=== PATIENT | male | born 1975 | race African-American/Black ===

== ENCOUNTER 2018-11-01 13:19 | Inpatient (IN) | END 2018-11-10 14:30 | disposition home or self-care (01) | DRG 974 | DX: A41.9 Sepsis, unspecified organism (principal); N17.0 Acute kidney failure with tubular necrosis; B20 Human immunodeficiency virus [HIV] disease; E44.0 Moderate protein-calorie malnutrition; N41.0 Acute prostatitis; E87.1 Hypo-osmolality and hyponatremia; K62.5 Hemorrhage of anus and rectum; R65.20 Severe sepsis without septic shock; D64.9 Anemia, unspecified; D72.819 Decreased white blood cell count, unspecified; M48.02 Spinal stenosis, cervical region; E86.1 Hypovolemia; F12.90 Cannabis use, unspecified, uncomplicated; H91.3 Deaf nonspeaking, not elsewhere classified; K60.2 Anal fissure, unspecified; Z91.19 Patient's noncompliance with other medical treatment and regimen; M79.602 Pain in left arm; M79.601 Pain in right arm ==

== ENCOUNTER 2018-12-08 23:11 | Inpatient (IN) | payer OTHER ==
[~2018-12-08] VITALS: Ht 170.2 cm; Wt 63.5 kg
[~2018-12-08 23:11] MED LIST: ABAC1TAB15 PO; ACYC800T PO; ASCO500T9 PO; AZIT600T5 PO; CHOL100044 PO; FERR325T23 PO; FLUC100T8 PO; MULT-447 PO; OMEG-167 PO; OMEP20CA10 PO; SELE200T PO; SULF1TAB3 PO; TENO300T5 PO; ZINC50TA4 PO
--- NOTE | 2018-12-08 23:25 | NUR ---
PT JEANA FROM STREET C/O "FLU LIKE" SYMPTOMS X 3 DAYS. PT AOX4. PT COUGHING WITH NAD NOTED. RESP EVEN AND UNLABORED. PT IS DEAF. PT ON MONITOR IN BED 12. WILL CONTINUE TO MONITOR.
--- NOTE | 2018-12-08 23:28 | NUR ---
RT AT BEDSIDE
[2018-12-08] MEDS ORDERED: IV NS 0.9% 1,000 ML BAG IV ONE (23:30)
[2018-12-08] MEDS ORDERED: ALBUTEROL FS 2.5 MG/3 ML VIAL.NEB CONTNEB ONE (23:30)
[2018-12-08] MEDS ORDERED: methylPREDNISolone SOD SUCC 125 MG/2ML VIAL IV ONE (23:30)
[2018-12-08] MEDS ORDERED: IPRATROPIUM NEB FS 0.5 MG/2.5 ML AMPUL.NEB NEB ONE (23:30)
[2018-12-08] MEDS ORDERED: KETOROLAC TROMETHAMINE INJ 30 MG/ML VIAL IV ONE (23:30)
[2018-12-08] MEDS ORDERED: IPRATROPIUM NEB FS 0.5 MG/2.5 ML AMPUL.NEB ONE (23:32)
[2018-12-08] MEDS ORDERED: ALBUTEROL FS 2.5 MG/3 ML VIAL.NEB ONE (23:32)
[2018-12-08 23:45] LABS: BASOPHILS % (AUTO) 0.8 % (0.0-2.0); EOSINOPHILS % (AUTO) 8.2 % (0.0-6.0); HEMATOCRIT 40 % (39-51); HEMOGLOBIN 13.1 g/dL (13.5-17.5); LYMPHOCYTES # (AUTO) 0.8 /CMM (0.8-4.8); LYMPHOCYTES % (AUTO) 23.9 % (20.0-44.0); MEAN CORPUSCULAR HGB CONC 33 g/dl (31.0-36.0); MEAN CORPUSCULAR VOLUME 87 fL (80-96); MONOCYTES # (AUTO) 0.2 /CMM (0.1-1.30); MONOCYTES % (AUTO) 6.6 % (2.0-12.0); NEUTROPHILS % (AUTO) 60.5 % (43.0-81.0); PLATELET COUNT (AUTO) 229 /CMM (150-450); RED BLOOD CELL COUNT(AUTO) 4.54 MIL/uL (4.5-6.0); WHITE BLOOD COUNT (AUTO) 3.3 K/uL (4.3-11.0)
[2018-12-08 23:59] LABS: CALCIUM, SERUM 8.3 mg/dL (8.5-10.1); CREATININE 1.2 mg/dL (0.6-1.3); POTASSIUM 4.1 mmol/L (3.5-5.1)
[2018-12-09 00:11] LABS: ALBUMIN 2.9 g/dL (3.4-5.0); BILIRUBIN,DIRECT 0.1 mg/dL (0.0-0.2); BILIRUBIN,TOTAL 0.5 mg/dL (0.2-1.0); TOTAL PROTEIN, SERUM 7.3 g/dL (6.4-8.2)
--- NOTE | 2018-12-09 00:20 | NUR ---
SWAB DONE AND SENT TO LAB
[2018-12-09] MEDS ORDERED: methylPREDNISolone SOD SUCC 125 MG/2ML VIAL ONE (00:22)
[2018-12-09] MEDS ORDERED: KETOROLAC TROMETHAMINE 15 MG/ML VIAL ONE (00:22)
[2018-12-09] MEDS ORDERED: LEVOFLOXACIN 750 MG /D5W 150ML PIGGYBACK IV ONE (00:30)
[2018-12-09] MEDS ORDERED: FUROSEMIDE 40 MG/4 ML VIAL IV ONE (00:30)
--- NOTE | 2018-12-09 01:48 | NUR ---
Patient is resting comfortably in bed with eyes closed. Easily aroused. VSS.
--- NOTE | 2018-12-09 01:57 | NUR ---
REPORT GIVEN TO MYA GONZALES FOR GERSON
[2018-12-09] MEDS ORDERED: ACETAMINOPHEN 325 MG TABLET PO PRN (02:00)
[2018-12-09] MEDS ORDERED: ZOLPIDEM TARTRATE 5 MG TABLET PO PRN (02:00)
[2018-12-09] MEDS ORDERED: IPRATROPIUM NEB FS 0.5 MG/2.5 ML AMPUL.NEB NEB PRN (02:00)
[2018-12-09] MEDS ORDERED: MAGNESIUM HYDROXIDE 30 ML UDC PO PRN (02:00)
[2018-12-09] MEDS ORDERED: ONDANSETRON HCL/PF 4 MG/2 ML VIAL IVP PRN (02:00)
[2018-12-09] MEDS ORDERED: ALBUTEROL FS 2.5 MG/0.5 ML VIAL.NEB NEB PRN (02:00)
[2018-12-09] MEDS ORDERED: Z GUARD REMEDY 2 OZ OINT TP PRN (02:00)
--- NOTE | 2018-12-09 02:05 | NUR ---
PONY RIDE OPERATOR NOTE PATIENT ARRIVED ON UNIT BY SANDRITA, PATIENT A/O X3, DEAF AND MUTE, BUT UNDERSTANDS MALTESE THROUGH WRITING. PATIENT IS SR ON THE MONITOR IN THE 90'S DENIE'S CHEST PAIN. PATIENT C/O SOB 2L O2 VIA NC GIVEN TO PATIENT, PATIENT STATES THAT HE FEELS BETTER. PATIENT HAS GENERALIZED RASHES ON THE SKIN. MD AWARE. WOUND CONSULT PENDING. PATIENT HAS A 20 G RIGHT HAND PATENT AND INTACT. NO S.S OF DISCOMFORT. PATIENT EDUCATED ON USE OF CALL LIGHT AND ORIENTED TO THE UNIT. RN WILL CONTINUE TO MONITOR PATIENT AND GIVEN CARE ORDERED.
[2018-12-09 02:10] VITALS: BP 130/88
[2018-12-09 04:00] VITALS: BP 120/85
--- NOTE | 2018-12-09 06:41 | NUR ---
HEAD CHARGER NOTE PATIENT SLEPT THROUGH THE NIGHT WELL. NO S/S OF DISTRESS. RN WILL ENDORSE TO AM FOR GERSON.
--- NOTE | 2018-12-09 07:49 | NUR ---
RN AM SHIFT NOTE RECEIVED PATIENT IN BED AWAKE AND ALERT X4, UNABLE TO VERBALIZE COMMANDS BUT CAN WRITE RESPONSE ON DRY ERASE BOARD, NO DISTRESS, IV INTACT, ABLE TO AMBULATE ON HIS OWN,
[2018-12-09 08:00] VITALS: BP 119/84
[2018-12-09] MEDS: ENOXAPARIN SODIUM 40 MG/0.4 ML DISP.SYRIN SQ SCH (08:45)
[2018-12-09 12:00] VITALS: BP 123/79
--- NOTE | 2018-12-09 12:01 | NUR ---
WOUND CARE CONSULT: PT PRESENTS WITH ITCHING SKIN ALL OVER AND PERIANAL IRRITATION/RASH, PRESENT ON ADMISSION. DEFER TO MD FOR ITCHING SKIN CONDITION. RECOMMENDATIONS MADE FOR PERIANAL SKIN PROTECTION AND TREATMENT. DISCUSSED WITH NURSING STAFF. PT IS ABLE TO MOVE INDEPENDENTLY IN BED AND IS CONTINENT AT THIS TIME. WILL SEE CECILIA. IN AGREEMENT WITH PLAN OF CARE. Addendum: 12/09/18 at 1203 by MISSY MCDANIEL WNDNU Amended: Links added.
--- NOTE | 2018-12-09 12:15 | NUR ---
CHARGE NOTES DC TELEMETRY PER DR. DE PAZ
[2018-12-09] MEDS: FUROSEMIDE 40 MG/4 ML VIAL IV SCH ×3 (13:08→20:04)
--- NOTE | 2018-12-09 15:13 | NUR ---
Social work consult: drop worker spoke with EVELIN charger tester, who states that patient is homeless and HIV+. drop worker arrived to patient bedside to speak with patient, however, patient was sound asleep and unable to be woken up. drop worker to follow-up at a later time.
[2018-12-09 16:00] VITALS: BP 127/73
[2018-12-09] MEDS ORDERED: ZINC GLUCONATE 50 MG PO SCH (16:30)
[2018-12-09] MEDS ORDERED: TRIUMEQ PO SCH (16:30)
[2018-12-09] MEDS ORDERED: SELENIUM 200 MCG PO SCH (16:30)
[2018-12-09] MEDS ORDERED: AZITHROMYCIN 600 MG TABLET PO SCH (17:00)
[2018-12-09] MEDS: FLUCONAZOLE (100 MG) 100 MG TABLET PO SCH (18:29)
[2018-12-09] MEDS: FERROUS SULFATE (325 MG) 325 MG/TAB TABLET PO SCH (18:29)
[2018-12-09] MEDS: CHOLECALCIFEROL 1,000 UNIT TABLET (VIT D3) PO SCH (18:29)
[2018-12-09] MEDS: ACYCLOVIR 800 MG TABLET PO SCH (18:29)
[2018-12-09] MEDS: SULFAMETH/TRIMETH 800/160 MG 1 UDTAB TABLET PO SCH (18:29)
[2018-12-09] MEDS: ASCORBIC ACID 500 MG TABLET PO SCH (18:30)
--- NOTE | 2018-12-09 18:30 | NUR ---
RN NOTE PT DOES NOT HAVE CURRENT MEDICATION LIST, PHARMACY IS AWARE AND GOING TO FOLLOW UP WITH [facility] TOMORROW. WILL ENDORSE TO LINE SERVICE ATTENDANT. PT REMAINED STABLE, SAFETY MEASURES IN PLACE, CALL LIGHT WITHIN REACH.
[2018-12-09] MEDS: CEFTRIAXONE 1 G in IV D5W 50 ML IV SCH (18:33)
[2018-12-09] MEDS: TENOFOVIR DISOPROXIL FUMARATE 300 MG TABLET PO SCH (18:38)
[2018-12-09 20:00] VITALS: BP 127/70
[2018-12-09] MEDS ORDERED: PERMETHRIN 5% CRM 60 GM TUBE TP ONE (20:30)
[2018-12-10 04:00] VITALS: BP 138/87
[2018-12-10 07:13] LABS: BASOPHILS % (AUTO) 0.2 % (0.0-2.0); EOSINOPHILS % (AUTO) 5.3 % (0.0-6.0); HEMATOCRIT 44 % (39-51); HEMOGLOBIN 14.7 g/dL (13.5-17.5); LYMPHOCYTES # (AUTO) 0.2 /CMM (0.8-4.8); LYMPHOCYTES % (AUTO) 5.4 % (20.0-44.0); MEAN CORPUSCULAR HGB CONC 34 g/dl (31.0-36.0); MEAN CORPUSCULAR VOLUME 86 fL (80-96); MONOCYTES # (AUTO) 0.2 /CMM (0.1-1.30); MONOCYTES % (AUTO) 5.4 % (2.0-12.0); NEUTROPHILS # (AUTO) 3.2 /CMM (1.8-8.9); NEUTROPHILS % (AUTO) 83.7 % (43.0-81.0); PLATELET COUNT (AUTO) 232 /CMM (150-450); RED BLOOD CELL COUNT(AUTO) 5.14 MIL/uL (4.5-6.0); WHITE BLOOD COUNT (AUTO) 3.9 K/uL (4.3-11.0)
[2018-12-10 07:39] LABS: ALBUMIN 3.2 g/dL (3.4-5.0); BILIRUBIN,TOTAL 0.6 mg/dL (0.2-1.0); CALCIUM, SERUM 8.6 mg/dL (8.5-10.1); CREATININE 1.4 mg/dL (0.6-1.3); MAGNESIUM 1.6 mg/dL (1.8-2.4); POTASSIUM 3.7 mmol/L (3.5-5.1); TOTAL PROTEIN, SERUM 8.1 g/dL (6.4-8.2)
[2018-12-10 08:00] VITALS: BP 115/79
[2018-12-10] MEDS: SULFAMETH/TRIMETH 800/160 MG 1 UDTAB TABLET PO SCH (08:43)
[2018-12-10] MEDS: MULTIVITAMINS,THERAGRAN 1 UDTAB TABLET PO SCH (08:43)
[2018-12-10] MEDS: FLUCONAZOLE (100 MG) 100 MG TABLET PO SCH (08:43)
[2018-12-10] MEDS: PANTOPRAZOLE 40 MG TABLET.DR PO SCH (08:43)
[2018-12-10] MEDS: ACYCLOVIR 800 MG TABLET PO SCH (08:43)
[2018-12-10] MEDS: CHOLECALCIFEROL 1,000 UNIT TABLET (VIT D3) PO SCH (08:43)
[2018-12-10] MEDS: ASCORBIC ACID 500 MG TABLET PO SCH (08:44)
[2018-12-10] MEDS: FERROUS SULFATE (325 MG) 325 MG/TAB TABLET PO SCH (08:44)
[2018-12-10] MEDS: ENOXAPARIN SODIUM 40 MG/0.4 ML DISP.SYRIN SQ SCH (08:45)
[2018-12-10] MEDS: TENOFOVIR DISOPROXIL FUMARATE 300 MG TABLET PO SCH (09:07)
[2018-12-10] MEDS: Magnesium 1GM/D5W 100ML PREMIX 100 ML IV SCH ×2 (11:15→12:26)
[2018-12-10] MEDS: FUROSEMIDE 40 MG/4 ML VIAL IV SCH ×2 (11:16→15:03)
[2018-12-10] MEDS: POTASSIUM CHLORIDE 20 MEQ TAB.PRT.SR PO SCH ×3 (11:16→13:00)
[2018-12-10 12:00] VITALS: BP 115/79
--- NOTE | 2018-12-10 15:40 | NUR ---
MEDICAL RECORDS DEPARTMENT AT [facility] CONTACTED TO OBTAIN MEDICAL RECORDS. SEVERAL MASSAGES LEFT AWAITING FOR RESPONSE.
[2018-12-10 16:00] VITALS: BP 113/72
[2018-12-10] MEDS: CEFTRIAXONE 1 G in IV D5W 50 ML IV SCH (17:59)
--- NOTE | 2018-12-10 19:28 | NUR ---
RN SHIFT CLOSING NOTE PATIENT IN BED NO DISTRESS NOTED, COMMUNICATES VIA WHITE BOARD AND UNDERSTANDS DISEASE PROCESS. NO COMPLAINTS OF PAIN OR DISCOMFORT, BED IN LOW POSITION, LINENS CHANGED
[2018-12-10 20:00] VITALS: BP 111/74
[2018-12-11 04:00] VITALS: BP 92/56
[2018-12-11 06:25] LABS: APPEARANCE,URINE CLEAR (CLEAR); BILIRUBIN,URINE NEGATIVE (NEGATIVE); BLOOD, URINE NEGATIVE Ery/uL (NEGATIVE); COLOR,URINE YELLOW (YELLOW); KETONES,URINE NEGATIVE (NEGATIVE); LEUKOCYTE ESTERASE ,URINE NEGATIVE (NEGATIVE); NITRITE, URINE NEGATIVE (NEGATIVE); PROTEIN,URINE NEGATIVE (NEGATIVE); UGLUCOSE NEGATIVE (NEGATIVE); UROBILINOGEN,URINE 0.2 EU/dL (0.2)
[2018-12-11 07:23] LABS: BASOPHILS % (AUTO) 0.2 % (0.0-2.0); EOSINOPHILS % (AUTO) 14.7 % (0.0-6.0); HEMATOCRIT 46 % (39-51); HEMOGLOBIN 15.1 g/dL (13.5-17.5); LYMPHOCYTES # (AUTO) 0.3 /CMM (0.8-4.8); LYMPHOCYTES % (AUTO) 9.1 % (20.0-44.0); MEAN CORPUSCULAR HGB CONC 33 g/dl (31.0-36.0); MEAN CORPUSCULAR VOLUME 86 fL (80-96); MONOCYTES # (AUTO) 0.4 /CMM (0.1-1.30); MONOCYTES % (AUTO) 9.7 % (2.0-12.0); NEUTROPHILS # (AUTO) 2.5 /CMM (1.8-8.9); NEUTROPHILS % (AUTO) 66.3 % (43.0-81.0); PLATELET COUNT (AUTO) 256 /CMM (150-450); RED BLOOD CELL COUNT(AUTO) 5.28 MIL/uL (4.5-6.0); WHITE BLOOD COUNT (AUTO) 3.8 K/uL (4.3-11.0)
[2018-12-11 07:33] LABS: ALBUMIN 3.2 g/dL (3.4-5.0); BILIRUBIN,TOTAL 0.7 mg/dL (0.2-1.0); CALCIUM, SERUM 8.6 mg/dL (8.5-10.1); CREATININE 1.5 mg/dL (0.6-1.3); PHOSPHORUS 3.3 mg/dL (2.5-4.9); POTASSIUM 4.2 mmol/L (3.5-5.1)
--- NOTE | 2018-12-11 07:50 | NUR ---
RN MED SURGE OPENING NOTES BEDSIDE REPORT GIVEN BY NOC, PATIENT A/O X3, DEAF AND MUTE, BUT UNDERSTANDS [place]ANZAN[place] THROUGH WRITING. PATIENT JOHN CHEST PAIN. PATIENT ON 2L O2 VIA NC NO SIGNS OR SYMPTOMS OF RESPIRATORY DISTRESS OR ACUTE PAIN PATIENT HAS GENERALIZED RASHES ON THE SKIN TREATED WITH ALAMITE PATIENT HAS A 20 G RIGHT HAND PATENT AND INTACT. NO S.S OF DISCOMFORT. SAFETY PRECAUTIONS IN PLACE CALL LOGHT WITHIN REACH CALL LIGHT WILL CONTINUE TO MONITOR
[2018-12-11 08:00] VITALS: BP 96/61
[2018-12-11] MEDS: ACYCLOVIR 800 MG TABLET PO SCH (09:01)
[2018-12-11] MEDS: FLUCONAZOLE (100 MG) 100 MG TABLET PO SCH (09:01)
[2018-12-11] MEDS: TENOFOVIR DISOPROXIL FUMARATE 300 MG TABLET PO SCH (09:01)
[2018-12-11] MEDS: PANTOPRAZOLE 40 MG TABLET.DR PO SCH (09:01)
[2018-12-11] MEDS: MULTIVITAMINS,THERAGRAN 1 UDTAB TABLET PO SCH (09:01)
[2018-12-11] MEDS: SULFAMETH/TRIMETH 800/160 MG 1 UDTAB TABLET PO SCH (09:01)
[2018-12-11] MEDS: ASCORBIC ACID 500 MG TABLET PO SCH (09:02)
[2018-12-11] MEDS: FERROUS SULFATE (325 MG) 325 MG/TAB TABLET PO SCH (09:02)
[2018-12-11] MEDS: CHOLECALCIFEROL 1,000 UNIT TABLET (VIT D3) PO SCH (09:02)
[2018-12-11] MEDS: ENOXAPARIN SODIUM 40 MG/0.4 ML DISP.SYRIN SQ SCH (09:06)
[2018-12-11] MEDS ORDERED: BUMETANIDE INJ 8 MG in IV NS 0.9% 48 ML IV ONE (10:00)
--- NOTE | 2018-12-11 11:28 | NUR ---
Social service consult requested due to homelessness. Pt is a 43-year-old male admitted due complains to shortness of breath, cough, congesting and difficulty breathing x3 days per H&P. Pt has a history of HIV and AIDS. Pt was recently discharged from [facility] on Nov 10, 2018. SW met with pt at bedside. Pt is mute and deaf, sw used writing to communicate with pt. Pt was calm and cooperative during interview. Pt had some of his belongings at bedside, pt also has a cell phone; pt is alert and oriented x4. SW offered pt homeless, winter assisted, homeless resources directory and behavioral health resources which pt accepted. Pts stated his discharge plan is to live with his friend Jose Loo ([phone]). Pt could not provide address however stated he will call his friend and provide it. Pt stated that his friend will pick him up and no transportation is necessary. Stepan updated MYA Harvey with aforementioned information discharge plan. SW will remain available if needed.
--- NOTE | 2018-12-11 13:41 | NUR ---
SPECIAL TRACKWORK BLACKSMITH NOTES CALLED [facility] AND LEFT A MESSAGE [facility] TO CALL BACK TO OBTAIN A FAX NUMBER TO SEND AUTHORIZATION FOR TRANSFER OF MEDICAL RECORDS. CONSENT SIGNED BY PATIENT. WILL F/U
--- NOTE | 2018-12-11 15:12 | NUR ---
LIQUOR COMMISSIONER NOTES MICROBIOLOGY CALLED PATIENT POSITIVE FOR MRSA NARES. WILL FOLLOW ISOLATION PROTOCOL
[2018-12-11 16:00] VITALS: BP 110/70
--- NOTE | 2018-12-11 16:49 | NUR ---
SENIOR PHARMACY TECHNICIAN NOTES SPOKE WITH TONIA FROM [facility] [phone] TO OBTAIN A FAX NUMBER TO SEND FOR AUTHORIZATION FOR USE DISCLOSURE OF HEALTH INFORMATION FAX NUMBER GIVEN [phone] FAX SENT WITH NO RESPONSE WILL SEND AGAIN PER TASIA CROFT
--- NOTE | 2018-12-11 16:55 | NUR ---
FURNITURE MOVER HELPER NOTE FAX SENT AND RECEIVED
--- NOTE | 2018-12-11 17:00 | NUR ---
MANAGER RESPIRATORY NOTES SPOKE WITH FRIEND OF PATIENT IN REGARDS TO HOUSING. FRIEND STARTED SHE TOO IS HOMELESS JUST LOOKS OUT FOR PT. BROUGHT HIM SOME FOOD BECAUSE HE TEXT HER. STATES PT [place] AND HAS NO FAMILY [place].
--- NOTE | 2018-12-11 19:25 | NUR ---
RN MED SURGE CLOSING NOTES BEDSIDE REPORT GIVEN BY NOC, PATIENT A/O X3, DEAF AND MUTE, BUT UNDERSTANDS BRITISH THROUGH WRITING. PATIENT JOHN CHEST PAIN. PATIENT ON 2L O2 VIA NC NO SIGNS OR SYMPTOMS OF RESPIRATORY DISTRESS OR ACUTE PAIN PATIENT HAS GENERALIZED RASHES ON THE SKIN TREATED WITH ALAMITE PATIENT HAS A #20 G RIGHT HAND PATENT AND INTACT.RUNNING BUMEX AT THIS TIME @10ML/HR NO S.S OF DISCOMFORT APPETITE GOOD CHANGED FNS TO DOUBLE PORTIONS NEW ORDERS FOR ATB TO BE DISCONTINUED. ALL MEDICATIONS ADMINISTERED WITH NO ADVERSE RXN. SAFETY PRECAUTIONS IN PLACE CALL LIGHT WITHIN REACH CALL LIGHT WITHIN REACH GERSON
--- NOTE | 2018-12-11 19:36 | NUR ---
MS RN NOTE: RECEIVED PT ON BED AWAKE AND ALERT. ABLE TO MAKE NEEDS KNOWN THROUGH WRITING. NO APPARENT DISTRESS NOTED. DENIES PAIN AND DISCOMFORT AT THIS TIME. NO SOB NOTED. IV ON RIGHT HAND #20 INTACT AND PATENT, FLUSHING WELL. KEPT CLEAN, DRY AND COMFORTABLE. CALL LIGHT PLACED WITHIN REACH. SAFETY AND FALL PRECAUTIONS OBSERVED AND MAINTAINED. WILL CONTINUE TO MONITOR PT.
[2018-12-11 20:41] VITALS: BP 112/70
[2018-12-11] MEDS: MUPIROCIN OINT 2% 22 GM TUBE SCH (21:14)
[2018-12-12 04:00] VITALS: BP 27/78
[2018-12-12] MEDS: HYDROCODONE/APAP 5/325MG 1 EACH TABLET PO PRN ×2 (04:27→22:13)
--- NOTE | 2018-12-12 06:49 | NUR ---
MS RN NOTE: NO CHANGES NOTED THROUGHOUT THE SHIFT. NO APPARENT DISTRESS NOTED. DENIES PAIN AND DISCOMFORT AT THIS TIME. ON 2LPM NASAL CANNULA, NO SOB NOTED. KEPT CLEAN, DRY AND COMFORTABLE. CALL LIGHT PLACED WITHIN REACH. ALL NEEDS ATTENDED. WILL ENDORSE TO DAY SHIFT RN FOR CONTINUITY OF CARE.
[2018-12-12 07:29] LABS: BASOPHILS % (AUTO) 0.4 % (0.0-2.0); HEMATOCRIT 48 % (39-51); HEMOGLOBIN 16.1 g/dL (13.5-17.5); LYMPHOCYTES # (AUTO) 0.5 /CMM (0.8-4.8); LYMPHOCYTES % (AUTO) 15.3 % (20.0-44.0); MEAN CORPUSCULAR HGB CONC 33 g/dl (31.0-36.0); MEAN CORPUSCULAR VOLUME 86 fL (80-96); MONOCYTES # (AUTO) 0.3 /CMM (0.1-1.30); NEUTROPHILS # (AUTO) 1.7 /CMM (1.8-8.9); NEUTROPHILS % (AUTO) 53.3 % (43.0-81.0); PLATELET COUNT (AUTO) 255 /CMM (150-450); RED BLOOD CELL COUNT(AUTO) 5.65 MIL/uL (4.5-6.0); WHITE BLOOD COUNT (AUTO) 3.2 K/uL (4.3-11.0)
[2018-12-12 07:39] LABS: ALBUMIN 3.5 g/dL (3.4-5.0); BILIRUBIN,TOTAL 0.4 mg/dL (0.2-1.0); CALCIUM, SERUM 9.2 mg/dL (8.5-10.1); CREATININE 1.9 mg/dL (0.6-1.3); MAGNESIUM 2.3 mg/dL (1.8-2.4); PHOSPHORUS 4.4 mg/dL (2.5-4.9); POTASSIUM 4.2 mmol/L (3.5-5.1)
[2018-12-12 07:40] LABS: TOTAL PROTEIN, SERUM 8.9 g/dL (6.4-8.2)
--- NOTE | 2018-12-12 07:43 | NUR ---
RN MED SURGE OPENING NOTES BEDSIDE REPORT GIVEN BY NOC, PATIENT A/O X3, DEAF AND MUTE, BUT UNDERSTANDS CITIZEN OF [place] AND [place] THROUGH WRITING. PATIENT JOHN CHEST PAIN. PATIENT ON 2L O2 VIA NC NO SIGNS OR SYMPTOMS OF RESPIRATORY DISTRESS OR ACUTE PAIN PATIENT HAS GENERALIZED RASHES ON THE SKIN TREATED WITH ALAMITE PATIENT HAS A #20 GAUGE IN RIGHT HAND PATENT AND INTACT . SAFETY PRECAUTIONS IN PLACE CALL LIGHT WITHIN REACH CALL LIGHT WILL CONTINUE TO MONITOR
[2018-12-12 08:00] VITALS: BP 111/76
[2018-12-12] MEDS: SULFAMETH/TRIMETH 800/160 MG 1 UDTAB TABLET PO SCH (08:19)
[2018-12-12] MEDS: MULTIVITAMINS,THERAGRAN 1 UDTAB TABLET PO SCH (08:19)
[2018-12-12] MEDS: PANTOPRAZOLE 40 MG TABLET.DR PO SCH (08:19)
[2018-12-12] MEDS: CHOLECALCIFEROL 1,000 UNIT TABLET (VIT D3) PO SCH (08:19)
[2018-12-12] MEDS: ASCORBIC ACID 500 MG TABLET PO SCH (08:19)
[2018-12-12] MEDS: ACYCLOVIR 800 MG TABLET PO SCH (08:19)
[2018-12-12] MEDS: FERROUS SULFATE (325 MG) 325 MG/TAB TABLET PO SCH (08:19)
[2018-12-12] MEDS: FLUCONAZOLE (100 MG) 100 MG TABLET PO SCH (08:20)
[2018-12-12] MEDS: ENOXAPARIN SODIUM 40 MG/0.4 ML DISP.SYRIN SQ SCH (08:21)
[2018-12-12 08:53] LABS: BAND % (MANUAL) 1 % (0.0-5.0); EOSINOPHILS % (MANUAL) 21 % (0-4); LYMPHOCYTES % (MANUAL) 15 % (16-48); MONOCYTES % (MANUAL) 9 % (0-11.0); NEUTROPHILS % (MANUAL) 54 (42-76)
[2018-12-12] MEDS: MUPIROCIN OINT 2% 22 GM TUBE SCH ×2 (09:18→20:54)
[2018-12-12] MEDS ORDERED: BUMETANIDE INJ 16 MG in IV NS 0.9% 16 ML IV ONE (12:00)
--- NOTE | 2018-12-12 13:54 | NUR ---
LICENSING DIRECTOR NOTES PT ON BED AWAKE AND ORIENTED. PT USES A PAPER AND PEN TO COMMUNICATE. ALL NEEDS MET AT THIS TIME. PT IS CURRENTLY ON BUMEX AT 10CC/HR. ATE 75% OF HIS LUNCH. BED ON LOWEST POSITION. CALL LIGHT WITHIN REACH. WILL CONT TO MONITOR.
--- NOTE | 2018-12-12 14:58 | NUR ---
RN MS NOTES [facility] REPLIED IN REGARDS TO OBTAINING PATIENTS PAST MEDICAL RECORDS. STATED THAT THE PATIENT HAS NOT BEEN TO THE FACILITY IN AWHILE AND NEEDS TO REREGISTER. WILL ENDORSE TO TASIA CROFT NP
--- NOTE | 2018-12-12 15:12 | NUR ---
SW attempted to meet with pt. bedside to talk to him and encourage him to reregister with [facility] and give him the address and location to the nearest [facility] located at [address] [place] [address] in [place]. However, pt. was fast asleep. SW to come back again at a later time when pt. is awake.
[2018-12-12 16:00] VITALS: BP 108/66
--- NOTE | 2018-12-12 19:25 | NUR ---
RN MS CLOSING NOTES BEDSIDE REPORT GIVEN TO NOC, PATIENT A/O X3, DEAF AND MUTE, BUT UNDERSTANDS [place]PRI[place] THROUGH WRITING. PATIENT JOHN CHEST PAIN. PATIENT ON 2L O2 VIA NC NO SIGNS OR SYMPTOMS OF RESPIRATORY DISTRESS OR ACUTE PAIN PATIENT HAS GENERALIZED RASHES ON THE SKIN PATIENT HAS A #20 G RIGHT HAND PATENT AND INTACT.RUNNING BUMEX AT THIS TIME @10ML/HR NO S.S OF DISCOMFORT APPETITE GOOD CHANGED FNS TO DOUBLE PORTIONS. ALL MEDICATIONS ADMINISTERED WITH NO ADVERSE RXN. SAFETY PRECAUTIONS IN PLACE CALL LIGHT WITHIN REACH CALL LIGHT WITHIN REACH GERSON
--- NOTE | 2018-12-12 19:30 | NUR ---
MS RN NOTE: RECEIVED PT ON BED AWAKE AND ALERT. COMMUNICATES THROUGH WRITING. NO APPARENT DISTRESS NOTED. DENIES PAIN AND DISCOMFORT AT THIS TIME. ON 2LPM NASAL CANNULA, NO SOB NOTED. IV ON RIGHT HAND #20 INTACT AND PATENT, FLUSHING WELL. KEPT CLEAN, DRY AND COMFORTABLE. CALL LIGHT PLACED WITHIN REACH. SAFETY AND FALL PRECAUTIONS OBSERVED AND MAINTAINED. WILL CONTINUE TO MONITOR PT.
[2018-12-12 20:00] VITALS: BP 121/74
[2018-12-13 04:00] VITALS: BP 114/73
[2018-12-13 07:20] LABS: BASOPHILS % (AUTO) 0.4 % (0.0-2.0); HEMATOCRIT 52 % (39-51); HEMOGLOBIN 17.4 g/dL (13.5-17.5); LYMPHOCYTES # (AUTO) 0.5 /CMM (0.8-4.8); LYMPHOCYTES % (AUTO) 20.7 % (20.0-44.0); MEAN CORPUSCULAR HGB CONC 33 g/dl (31.0-36.0); MEAN CORPUSCULAR VOLUME 85 fL (80-96); MONOCYTES # (AUTO) 0.4 /CMM (0.1-1.30); MONOCYTES % (AUTO) 13.8 % (2.0-12.0); NEUTROPHILS # (AUTO) 0.9 /CMM (1.8-8.9); NEUTROPHILS % (AUTO) 35.2 % (43.0-81.0); PLATELET COUNT (AUTO) 254 /CMM (150-450); RED BLOOD CELL COUNT(AUTO) 6.13 MIL/uL (4.5-6.0); WHITE BLOOD COUNT (AUTO) 2.5 K/uL (4.3-11.0)
[2018-12-13 07:26] LABS: CALCIUM, SERUM 9.3 mg/dL (8.5-10.1); MAGNESIUM 2.3 mg/dL (1.8-2.4); PHOSPHORUS 4.4 mg/dL (2.5-4.9); POTASSIUM 4.6 mmol/L (3.5-5.1)
--- NOTE | 2018-12-13 07:32 | NUR ---
MS RN OPENING NOTE RECEIVED PT IN BED, ALERT AND ORIENTED X4. PT IS DEAF AND MUTE HOWEVER COMMUNICATES VIA WRITING ON NOTE PAD. DENIES N/V, CHEST PAIN, SOB. BREATHING IS EVEN AND UNLABORED ON ROOM AIR. PT IS REQUESTING NORCO FOR LEG PAIN, INFORMED PT THE NURSE WILL ADMINISTER PENDING VS CHECK, PT ACKNOWLEDGED UNDERSTANDING. R HAND #20G IV IS SALINE LOCKED WITHOUT REDNESS OR SWELLING. ALL NEEDS ATTENDED TO. BED IS LOCKED AND IN LOWEST POSITION, SIDE RAILS UP X2, BED ALARM ON, CALL LIGHT WITHIN REACH.
[2018-12-13 07:38] LABS: EOSINOPHILS % (AUTO) 29.9 % (0.0-6.0)
[2018-12-13 08:00] VITALS: BP 109/75
[2018-12-13] MEDS: FLUCONAZOLE (100 MG) 100 MG TABLET PO SCH (08:45)
[2018-12-13] MEDS: CHOLECALCIFEROL 1,000 UNIT TABLET (VIT D3) PO SCH (08:45)
--- NOTE | 2018-12-13 08:45 | NUR ---
MS RN NOTE MONITORED OXYGEN SATIATION ON ROOM AIR REQUESTED BY DR. DE PAZ. OXYGEN SATIATION REMINDED AT 96%-97% 10 MINS AFTER REMOVING NASAL CANNULA. INFORMED DR. DE PAZ WHO STATED TO KEEP NASAL CANNULA OFF NOW.
[2018-12-13] MEDS: SULFAMETH/TRIMETH 800/160 MG 1 UDTAB TABLET PO SCH (08:46)
[2018-12-13] MEDS: ACYCLOVIR 800 MG TABLET PO SCH (08:46)
[2018-12-13] MEDS: PANTOPRAZOLE 40 MG TABLET.DR PO SCH (08:46)
[2018-12-13] MEDS: HYDROCODONE/APAP 5/325MG 1 EACH TABLET PO PRN ×2 (08:47→13:30)
[2018-12-13] MEDS: MULTIVITAMINS,THERAGRAN 1 UDTAB TABLET PO SCH (08:47)
[2018-12-13] MEDS: ASCORBIC ACID 500 MG TABLET PO SCH (08:47)
[2018-12-13] MEDS: FERROUS SULFATE (325 MG) 325 MG/TAB TABLET PO SCH (08:47)
[2018-12-13] MEDS: ENOXAPARIN SODIUM 40 MG/0.4 ML DISP.SYRIN SQ SCH (08:48)
[2018-12-13] MEDS: CARVEDILOL 3.125 MG TABLET PO SCH ×2 (09:00→21:30)
[2018-12-13] MEDS: MUPIROCIN OINT 2% 22 GM TUBE SCH ×3 (09:03→21:28)
[2018-12-13 09:04] LABS: EOSINOPHILS % (MANUAL) 31 % (0-4); LYMPHOCYTES % (MANUAL) 22 % (16-48); MONOCYTES % (MANUAL) 7 % (0-11.0); NEUTROPHILS % (MANUAL) 40 (42-76)
--- NOTE | 2018-12-13 09:45 | NUR ---
MS RN NOTE PHARMACY TO SEND BACTROBAN OINTMENT. CURRENTLY NOT PRESENT AT THE BEDSIDE OR CASSETTE.
[2018-12-13] MEDS: FUROSEMIDE 40 MG TABLET PO SCH (09:47)
--- NOTE | 2018-12-13 13:30 | NUR ---
MS RN NOTE NORCO 5-325MG ADMINISTERED FOR HEADACHE 5/10 THAT IS ACHING. BP: 122/77, HR: 85.
--- NOTE | 2018-12-13 13:44 | NUR ---
MS RN NOTE PT REQUESTING SOMETHING FOR ITCHING ASSOCIATED WITH RASH ON UPPER EXTREMITIES AND KNEES. PER WOUND CARE NURSE NOTE, DEFER ITCHING TO MD. RECIEVED ORDERS FROM TASIA CROFT NP FOR TOPICAL BENADRYL OINTMENT.
[2018-12-13] MEDS ORDERED: diphenhydrAMINE HCL/ZINC ACET CREAM 28.3 GM TUBE TP PRN (14:00)
--- NOTE | 2018-12-13 14:19 | NUR ---
MS RN NOTE BENADRYL TOPIC OINTMENT APPLIED ORDERED FOR ITCHING ON THE UPPER AND LOWER EXTREMITIES.
[2018-12-13 16:00] VITALS: BP 114/71
[2018-12-13] MEDS ORDERED: CARV3.122 PO (16:04)
[2018-12-13] MEDS ORDERED: ALBU18HF2 INH (16:04)
[2018-12-13] MEDS ORDERED: FURO40TA5 PO (16:04)
[2018-12-13] MEDS ORDERED: MUPI22OI7 (16:04)
--- NOTE | 2018-12-13 16:30 | NUR ---
MS RESEARCH CENTER PARTNER PLANNING INFORMED PT VIA PEN AND PAPER THAT HE IS MEDICALLY CLEARED AND D/C. INQUIRED TO WHO WILL PICK PT UP AND WHAT TIME. PER PT, FRIEND IS UNABLE TO PICK HIM UP BECAUSE HE IS AT WORK UNTIL 1130 TONIGHT. THE PT DOES NOT HAVE ANOTHER MEANS OF TRANSPORTATION AT THIS TIME. THE PT WROTE "I NEED TO GO TO THE BANK" WHEN ASKED TO PROVIDE AN ADDRESS HE COULD GO TO. INFORMED CHARGE NURSE CORNEL AND WILL FOLLOW UP WITH FRIEND LOREN WAGGONER.
--- NOTE | 2018-12-13 16:45 | NUR ---
MS RN NOTE INQUIRED AGAIN REGARDING HOME ADDRESS WILL PT WILL GO, PT DECLINED TO GIVE AND STATED HE WANTS TO GO A LOCAL [facility] INSTEAD. INFORMED THE PT THAT WE CANNOT SEND HIM TO A PUBLIC FACILITY. INQUIRED AGAIN IF A FAMILY MEMBER OR LOVED ONE IS ABLE TO COME AND PICK THE PT UP AND IF THEY HAVE AN ADDRESS, PT STATED NO.
--- NOTE | 2018-12-13 16:53 | NUR ---
MS RN NOTE LEFT A MESSAGE FOR LOREN WAGGONER UTILIZING NUMBER LISTED IN SW NOTE REGARDING PT D/C AND RN SPINE. PROVIDED CONTACT INFORMATION, AWAITING RESPONSE.
--- NOTE | 2018-12-13 17:15 | NUR ---
MS RN NOTE CALLED TESSIE AT [phone] REQUESTED BY PT REGARDING D/C, LEFT VOICEMAIL WITH CALL BACK INFORMATION, AWAITING RESPONSE.
--- NOTE | 2018-12-13 18:00 | NUR ---
MS RN NOTE INFORMED THE PT THAT BECAUSE HE IS NOT ABLE TO PROVIDE A HOME OR APARTMENT ADDRESS OF WHERE HE WILL BE GOING, WE ARE UNABLE TO PROVIDE HIM WITH TRANSPORT AFTER D/C BECAUSE WE CANNOT TRANSPORT HIM TO A PUBLIC FACILITY INCLUDING A BANK. INFORMED THE PT THAT HE IS D/C BUT DOES NEED A FAMILY MEMBER OR FRIEND TO COME PICK HIM UP AND TO PROVIDE US WITH AN ADDRESS THAT HE WILL BE GOING TO. PT SHOOK HIS HEAD AND MOTIONED HIS HAND TOWARDS THE DOOR.
--- NOTE | 2018-12-13 19:40 | NUR ---
MS RN CLOSING NOTE PT IN BED, ALERT AND ORIENTED X4. PT IS DEAF AND MUTE HOWEVER COMMUNICATES VIA WRITING ON NOTE PAD. DENIES N/V, CHEST PAIN, SOB. BREATHING IS EVEN AND UNLABORED ON ROOM AIR. R HAND #20G IV IS SALINE LOCKED WITHOUT REDNESS OR SWELLING. CONTACT PRECAUTIONS MAINTAINED, ADLS PROVIDED. PT IS REFUSING WOUND D/C DOCUMENTATION X3. PT HAS D/C ORDER, EXIT CARE AND PAPERWORK COMPLETED AND IN CHART PER PROTOCOL. ALL NEEDS ATTENDED TO. BED IS LOCKED AND IN LOWEST POSITION, SIDE RAILS UP X2, BED ALARM ON, CALL LIGHT WITHIN REACH.
[2018-12-13 20:00] VITALS: BP 117/69
--- NOTE | 2018-12-13 20:00 | NUR ---
RN OPENING NOTE RECEIVED PT IN BED, ALERT AND ORIENTED X4. PT IS DEAF AND MUTE HOWEVER COMMUNICATES VIA WRITING ON NOTE PAD. DENIES N/V, CHEST PAIN, SOB. BREATHING IS EVEN AND UNLABORED ON ROOM AIR. NO COMPLAINS OF PAIN AT THIS TIME.R HAND #20G IV HAS BEEN NOTED WITHOUT REDNESS OR SWELLING. ALL NEEDS ATTENDED . BED IS LOCKED AND IN LOWEST POSITION, SIDE RAILS UP X2, BED ALARM ON, CALL LIGHT WITHIN REACH. WILL CONTINUE TO MONITOR.
--- NOTE | 2018-12-13 23:15 | NUR ---
RN NOTES PATIENT SAID THAT HIS FRIEND WHO WAS SPOUSE TO CAME TO PICK HIM UP CAN'T DO IT TODAY DUE TO BEING OUT OF TOWN. PATIENT STATES THAT MAYBE HE WILL COME TOMORROW MORNING. PUBLIC HEALTH REPRESENTATIVE SHYLA AND KENNETH GALLO NOTIFIED. WILL CONTINUE PATIENT CARE.
[2018-12-14 04:00] VITALS: BP 110/73
--- NOTE | 2018-12-14 07:10 | NUR ---
rn notes patient is comfortably ersting in the bed, a/a/ox4. no acute changes during my shift, no sob, no pain complaint. will endorse to am shift RN for wirer passenger car.
--- NOTE | 2018-12-14 07:46 | NUR ---
MS RN NOTES PATIENT IS IN STABLE CONDITION. IN NO APPARENT DISTRESS. BEDSIDE RAILS ARE UPX2. BED IS LOCKED AND LOWERED. CALL LIGHT IS WITHIN REACH. IV LINE IS INTACT AND PATENT. WILL CONTINUE TO MONITOR PATIENT.
[2018-12-14 08:00] VITALS: BP 110/69
[2018-12-14] MEDS: ENOXAPARIN SODIUM 40 MG/0.4 ML DISP.SYRIN SQ SCH (09:11)
[2018-12-14] MEDS: SULFAMETH/TRIMETH 800/160 MG 1 UDTAB TABLET PO SCH (09:12)
[2018-12-14] MEDS: ASCORBIC ACID 500 MG TABLET PO SCH (09:13)
[2018-12-14] MEDS: MULTIVITAMINS,THERAGRAN 1 UDTAB TABLET PO SCH (09:13)
[2018-12-14] MEDS: FERROUS SULFATE (325 MG) 325 MG/TAB TABLET PO SCH (09:13)
[2018-12-14] MEDS: CHOLECALCIFEROL 1,000 UNIT TABLET (VIT D3) PO SCH (09:13)
[2018-12-14 09:14] VITALS: BP 110/69
[2018-12-14] MEDS: FUROSEMIDE 40 MG TABLET PO SCH (09:14)
[2018-12-14] MEDS: CARVEDILOL 3.125 MG TABLET PO SCH (09:14)
[2018-12-14] MEDS: FLUCONAZOLE (100 MG) 100 MG TABLET PO SCH (09:14)
[2018-12-14] MEDS: PANTOPRAZOLE 40 MG TABLET.DR PO SCH (09:14)
[2018-12-14] MEDS: ACYCLOVIR 800 MG TABLET PO SCH (09:14)
[2018-12-14] MEDS: MUPIROCIN OINT 2% 22 GM TUBE SCH (09:15)
--- NOTE | 2018-12-14 14:32 | NUR ---
PATIENT REFUSED DISCHARGE PICTURES. PATIENT WANTS TO LEAVE THE HOSPITAL SOON POSSIBLE HE HAS ERRANDS TO COMPLETE AND HE IS AFRAID THEY WILL CLOSE EARLY ON A SUNDAY.
--- NOTE | 2018-12-14 14:48 | NUR ---
MS PLATE GLASS POLISHER NOTES PATIENT DISCHARGED IN STABLE CONDITION. IN NO APPARENT DISTRESS. IV LINE WAS REMOVED. ID BAND WAS REMOVED. ALL NEEDS WERE MET. TAXI VOUCHER PROVIDED TO THE PATIENT TO [employer] [facility] [id number]. PRESCRIPTIONS WERE GIVEN. EXITCARE WAS COMPLETED AND SIGNED AND PROVIDED TO THE PATIENT. PATIENT ESCORTED OUT OF THE FACILITY VIA WHEELCHAIR BY STAFF. BELONGINGS CHECKED, SIGNED AND PROVIDED TO THE PATIENT. PATIENT REFUSED DISCHARGE PICTURES DUE TO WANTING TO LEAVE SOON POSSIBLE.
== END 2018-12-14 14:25 | disposition home or self-care (01) | DRG 291 ==
LOC: ER 23:12 → TELE1 12-09 01:03 → MEDSG1 12-09 12:02
PROVIDERS: ADMIT Nurse Practitioner Acute Care; ATTEND Registered Nurse
DX: I11.0 Hypertensive heart disease with heart failure (principal); J15.9 Unspecified bacterial pneumonia; N17.0 Acute kidney failure with tubular necrosis; B20 Human immunodeficiency virus [HIV] disease; E44.0 Moderate protein-calorie malnutrition; Z59.0 Homelessness; E78.5 Hyperlipidemia, unspecified; K21.9 Gastro-esophageal reflux disease without esophagitis; I50.33 Acute on chronic diastolic (congestive) heart failure; I43 Cardiomyopathy in diseases classified elsewhere; Z68.21 Body mass index [BMI] 21.0-21.9, adult; D64.9 Anemia, unspecified; H91.90 Unspecified hearing loss, unspecified ear; B86 Scabies; Z79.899 Other long term (current) drug therapy; Z91.19 Patient's noncompliance with other medical treatment and regimen
CPT/HCPCS: 36415; 71045-TC; 80048-TC; 80053-TC; 80061-TC; 80076-TC; 81000-TC; 83615-TC; 83690-TC; 83735-TC; 83880; 84100-TC; 84484-TC; 85025-TC; 87040-TC; 87081-TC; 87400; 93307-TC; A4216; G0378; J0696; J1650; J1885; J1940; J1956; J2930; J3475; J3490; J7030; J7060